=== PATIENT | female | born 1940 ===

== ENCOUNTER 2017-08-23 12:00 | Inpatient (IN) | payer OTHER ==
[~2017-08-23] VITALS: Ht 152.4 cm; Wt 79.4 kg
[2017-08-23] MEDS ORDERED: TOPROL XL100 M1 PO (12:47)
[2017-08-23] MEDS ORDERED: SYNTHROID100 MCG PO (12:47)
[2017-08-23] MEDS ORDERED: LIPITOR80 MG PO (12:48)
[2017-08-23] MEDS ORDERED: TRETAL PO (12:48)
[2017-08-31] MEDS ORDERED: AMOX-CLAV 875-1 EACH PO (12:53)
[2017-08-31] MEDS ORDERED: DOCUSATE SODIU100 MG PO (12:53)
[2017-08-31] MEDS ORDERED: GABAPENTIN800 MG PO (12:53)
[2017-08-31] MEDS ORDERED: PERCOCET 5-3251 EACH PO (12:53)
[2017-08-31] MEDS ORDERED: CLONAZEPAM1 MG PO (12:53)
== END 2017-08-31 14:35 | disposition home or self-care (01) | DRG 460 ==
LOC: O/R 08-30 04:30 → PED 08-30 04:30 → SURG 08-30 12:00 → PED 08-30 18:01
PROVIDERS: Orthopaedic Surgery Orthopaedic Surgery of the Spine
PROC: 0SG10AJ Fusion of 2 or more Lumbar Vertebral Joints with Interbody Fusion Device, Posterior Approach, Anterior Column, Open Approach (ICD-10-PCS; 2017-08-30)
PROC: 0ST20ZZ Resection of Lumbar Vertebral Disc, Open Approach (ICD-10-PCS; 2017-08-30)
PROC: 07DS3ZZ Extraction of Vertebral Bone Marrow, Percutaneous Approach (ICD-10-PCS; 2017-08-30)
PROC: 0SG10A0 Fusion of 2 or more Lumbar Vertebral Joints with Interbody Fusion Device, Anterior Approach, Anterior Column, Open Approach (ICD-10-PCS; principal; 2017-08-30 15:00)
DX: M47.26 Other spondylosis with radiculopathy, lumbar region (principal); M48.061 Spinal stenosis, lumbar region without neurogenic claudication; I10 Essential (primary) hypertension; M51.16 Intervertebral disc disorders with radiculopathy, lumbar region; E03.8 Other specified hypothyroidism; M41.86 Other forms of scoliosis, lumbar region